=== PATIENT | male | born 1995 | race Hispanic/Latino ===

== ENCOUNTER 2023-05-08 06:08 | Emergency (ER) | payer BC, OTHER ==
[~2023-05-08] VITALS: Ht 182.9 cm; Wt 64.0 kg
[2023-05-08 06:10] VITALS: BP 125/73; PULSE 80; RESP 16
[2023-05-08] MEDS ORDERED: IBUP-1493 PO (06:41)
[2023-05-08] MEDS ORDERED: AMOX500C2 PO (06:41)
[2023-05-08] MEDS: KETOROLAC 60 MG VIAL (30MG/ML) IM ONE (06:51)
== END 2023-05-08 06:59 | disposition home or self-care (01) ==
LOC: EDH 06:08
DX: K04.7 Periapical abscess without sinus (principal); Z79.1 Long term (current) use of non-steroidal anti-inflammatories (NSAID)
CPT/HCPCS: 99284; 96372; J1885